=== PATIENT | female | born 1960 | race Caucasian/White ===

== ENCOUNTER 2019-04-06 08:03 | Emergency (ER) | payer MEDICARE, MEDICAID ==
[~2019-04-06] VITALS: Ht 170.2 cm; Wt 62.1 kg
[2019-04-06 09:03] LABS: HEMOGLOBIN 13.8 gm/dL (12.0-15.0); MCH 32.7 pg (26.0-34.0); MCHC 34.6 g/dL (28.0-37.0); MCV 94.5 fL (80.0-100.0); MPV 7.9 fl. (7.2-11.1); RBC 4.23 mil/uL (4.20-5.00); RDW-CV 12.4 % (10.5-14.5); WBC 4.5 thou/uL (4.0-11.0)
[2019-04-06 09:10] LABS: CALCIUM 9.8 mg/dL (8.5-10.1); CREATININE 0.9 mg/dL (0.6-1.3); POTASSIUM 3.9 mmol/L (3.5-5.1)
[2019-04-06 09:15] LABS: TOTAL BILIRUBIN 0.4 mg/dL (<0.1-1.0); TOTAL PROTEIN 7.3 g/dL (6.4-8.2)
[2019-04-06] MEDS ORDERED: AUGMENTIN 875-1 EACH PO (10:50)
[2019-04-06] MEDS ORDERED: ZPAK PO (10:54)
[2019-04-06 11:08] VITALS: BP 120/80
--- NOTE | 2019-04-06 15:51 | EKG ---
[place] [address] ELECTROCARDIOGRAM REPORT Name: MAXI SHUKLA Room: [facility]#: [id number] Admission: 04/06/19 Attend Phys: Discharge: 04/06/19 Date of : 58 Report #: [id number] THIS REPORT FOR: //name// [facility] ED Test Date: 2019-04-06 Test Time: 08:34:51 Pat Name: MAXI SHUKLA Department: Room: Gender: F Trial Paralegal: : 1960 Requested By: Toby Branham Order Number: [id number] MD: Pablo Esqueda Measurements Intervals [place] Rate: 70 P: 77 AL: 161 QRS: 58 QRSD: 103 T: 53 QT: 395 QTc: 427 Interpretive Statements Sinus rhythm No previous ECG available for comparison Electronically Signed On 04-06-2019 15:50:50 [employer]NAGER [employer] by Pablo Esqueda [email or web address] <ELECTRONICALLY SIGNED> By: Pablo Esqueda MD, [facility] 04/06/19 1550 0834 [id number] Pablo Esqueda MD, FACC /EPI
== END 2019-04-06 11:08 | disposition home or self-care (01) ==
LOC: M.ERS 08:03
PROVIDERS: Emergency Medicine Emergency Medical Services
DX: H66.93 Otitis media, unspecified, bilateral (principal)